=== PATIENT | male | born 1995 | race Two or more races ===

== ENCOUNTER 2017-10-01 11:29 | Emergency (ER) | payer SELFPAY ==
[~2017-10-01] VITALS: Ht 180.3 cm; Wt 133.5 kg
[2017-10-01 11:39] VITALS: BP 130/99
== END 2017-10-01 12:43 | disposition left against medical advice (07) ==
LOC: EME 11:29 → EDBD 11:29 → EME 12:43
DX: Z04.1 Encounter for examination and observation following transport accident (principal); M54.6 Pain in thoracic spine; Z53.21 Procedure and treatment not carried out due to patient leaving prior to being seen by health care provider